=== PATIENT | male | born 1960 | race African-American/Black ===

== ENCOUNTER 2017-02-08 13:00 | Emergency (ER) | payer OTHER ==
[2017-02-08 13:05] VITALS: TEMP 98.5; BMI 33.2
--- NOTE | 2017-02-08 14:23 | PDOC ---
History of Present Illness - General Chief Complaint: Shortness of Breath Stated Complaint: SOB Time Seen by Provider: 02/08/17 14:22 History Source: Patient Exam Limitations: No Limitations - History of Present Illness Initial Comments: 56 yo AA M h/o HTN, HLD, ?COPD on PRN albuterol and predisone 10mg, schizophrenia presented to the ED with worsening sob and flu-like symptoms x 1- 2 days. Patient stated that he's been short of breath for 16 years and no physician able to figure out what's going on. He also said he has nasal polyps and septum deviation and ENT doctor told him no intervention necessary unless he can't breath. His flu-like symptoms include nasal congestion, runny nose, productive cough with white sputum. Denies fever, chills, chest pain, sick contact, recent travel, urinary or bowel symptoms. Past History - Past Medical History Allergies/Adverse Reactions: Allergies Allergy/AdvReac Type Severity Reaction Status Date / Time Penicillins Allergy Unknown Verified 02/08/17 13:06 SHRIMPS Allergy Uncoded 02/08/17 13:06 Home Medications: Ambulatory Orders Ramipril [Altace] 10 mg PO HS 07/01/12 Metformin HCl [Glucophage -] 1,000 mg PO BID 11/13/12 NPH, Human Insulin Isophane [Novolin N] 30 unit SQ BID 11/13/12 Clozapine 50 mg PO HS 12/12/14 Amlodipine Besylate [Norvasc -] 5 mg PO DAILY 01/10/16 Hydrochlorothiazide [Hctz -] 25 mg PO DAILY 01/10/16 Rosuvastatin Calcium [Crestor] 5 mg PO DAILY 01/10/16 Tamsulosin HCl [Flomax] 0.4 mg PO DAILY 01/10/16 Albuterol 0.083% Nebulizer Miladis [Ventolin 0.083% Nebulizer Soln -] 1 neb NEB Q6H #30 vial 10/22/16 Azithromycin [Zithromax -] 250 mg PO UTDICT #6 tab 10/22/16 Meclizine HCl 25 mg PO TID #30 tablet 10/22/16 Prednisone [Deltasone -] 40 mg PO DAILY #14 tablet 10/22/16 Prednisone [Deltasone -] 40 mg PO DAILY #4 tablet 02/08/17 COPD: Yes Diabetes: Yes HTN: Yes Hypercholesterolemia: Yes Psychiatric Problems: Yes (schizophrenia) - Immunization History Immunization Up to Date: No - Psycho/Social/Smoking Cessation Hx Anxiety: No Suicidal Ideation: No Smoking Status: No Smoking History: Former smoker Have you smoked in the past 12 months: No Number of Cigarettes Smoked Daily: 0 If you are a former smoker, when did you quit?: 1989 Cigars Per Day: 0 Information on smoking cessation initiated: Yes 'Breaking Loose' booklet given: 02/08/17 Hx Alcohol Use: No Drug/Substance Use Hx: No Substance Use Type: None Review of Systems - Review of Systems Able to Perform ROS?: Yes Is the patient limited Korean proficient: No Constitutional: No: Chills, Fever Respiratory: Yes: Cough, Shortness of Breath, Wheezing, Productive cough Cardiac (ROS): No: Chest Pain, Edema ABD/GI: No: Abdominal Distended, Nausea, Vomiting Musculoskeletal: Yes: Back Pain Neurological: Yes: Headache *Physical Exam - Vital Signs Last Vital Signs Temp Pulse Resp BP Pulse Ox 98.5 F 98 H 18 129/70 96 02/08/17 13:03 02/08/17 13:03 02/08/17 13:03 02/08/17 13:03 02/08/17 13:03 - Physical Exam General Appearance: Yes: Mild Distress HEENT: positive: Nasal Congestion. negative: Tonsillar Exudate, Tonsillar Erythema, Sinus Tenderness Neck: positive: Trachea midline, Supple Respiratory/Chest: positive: Rales, Wheezing Cardiovascular: positive: Regular Rhythm, Tachycardia. negative: Edema, Murmur Gastrointestinal/Abdominal: positive: Normal Bowel Sounds, Soft. negative: Tender, Distended, Guarding, Rebound, Tenderness Lymphatic: negative: Adenopathy, Tenderness Extremity: negative: Calf Tenderness Neurologic: positive: notcher II-XII NML intact, Fully Oriented, Alert, Normal Mood/ Affect Medical Decision Making - Medical Decision Making 02/08/17 15:46 Will give duoneb, predisone 60mg once and obtain CXR 02/08/17 16:48 CXR negative. Will discharge the patient home on prednisone 40mg daily x 4 more days. Patient is instructed to follow up with his PMD and ENT for further management on his chronic condition. *DC/Admit/Observation/Transfer Diagnosis at time of Disposition: Cold - Discharge Dispostion Disposition: HOME Condition at time of disposition: Improved Admit: No - Prescriptions Prescriptions: Prednisone [Deltasone -] 40 mg PO DAILY #4 tablet - Patient Instructions Additional Instructions: You were seen in the ED due to shortness of breath and cold symptoms. You have a cold which usually takes days to resolve and chronic condition of nasal polyps. Please continue to take predisone 40mg for 4 days and follow up with your primary doctor and ENT doctor. Come back in ED if you develop high fever, chills, chest pain or shortness of breath.
[2017-02-08] MEDS ORDERED: predniSONE 20 MG TABLET (UD) PO ONE (15:08)
[2017-02-08] MEDS ORDERED: predniSONE 20 MG TABLET (UD) ONE (15:24)
[2017-02-08] MEDS: ALBUTEROL SO4 2.5/IPRATROPIUM 0.5 INH SOL 3 ML VIAL.NEB. NEB SCH (15:32)
--- NOTE | 2017-02-08 15:46 | PDOC ---
[id number] I have performed the following: I have examined & evaluated the patient, The case was reviewed & discussed with the resident, I agree w/resident's findings & plan, Exceptions are as noted - HPI HPI: 56 yo M history COPD, seasonal allergies, chronic sinus problems, HTN, HL presents with upper respiratory congestion and cough, SOB for the past 2 days. He has been diagnosed with nasal polyps and a septal deviation, has not recently followed up with ENT. Denies fever, cp. He has had runny nose, cough with white sputum. - Physicial Exam PE: GENERAL: Awake, alert, and fully oriented, in no acute distress HEAD: No signs of trauma EYES: PERRLA, EOMI, sclera anicteric, conjunctiva clear ENT: R nare with thick nonpurulent discharge, L nare clear. Auricles normal inspection, hearing grossly normal, oropharynx clear without exudates. Moist mucosa NECK: Normal ROM, supple, no lymphadenopathy, JVD, or masses LUNGS: Slightly decreased air entry B/L with scattered exp wheezes. HEART: Regular rate and rhythm, normal S1 and S2, no murmurs, rubs or gallops ABDOMEN: Soft, nontender, normoactive bowel sounds. No guarding, no rebound. No masses EXTREMITIES: Normal range of motion, no edema. No clubbing or cyanosis. No cords, erythema, or tenderness NEUROLOGICAL: Cranial nerves II through XII grossly intact. Normal speech, normal gait SKIN: Warm, Dry, normal turgor, no rashes or lesions noted. - Medical Decision Making Patient with COPD exacerbation, mild symptoms. Likely due to seasonal allergies vs viral upper respiratory infection. Recommended nasal steroid spray, nebs, and PO steroids. Will f/u with ENT if the nasal symptoms persist.
[2017-02-08 17:31] VITALS: BP 118/68; PULSE 72
--- NOTE | 2017-02-12 12:38 | EKG ---
Test Reason : Blood Pressure : / mmHG Vent. Rate : 096 BPM Atrial Rate : 096 BPM P-R Int : 174 ms QRS Dur : 096 ms QT Int : 350 ms P-R-T Axes : 079 093 072 degrees QTc Int : 442 ms NORMAL SINUS RHYTHM RIGHTWARD AXIS WHEN COMPARED WITH ECG OF 22-OCT-2016 01:47, QRS AXIS SHIFTED LEFT NONSPECIFIC T WAVE ABNORMALITY NOW EVIDENT IN LATERAL LEADS Confirmed by ALBANIA CORONA, ALEX ([id number]) on 02/12/2017 12:37:58 PM Referred By: Confirmed By:ALEX LOVELACE MD
== END 2017-02-08 17:32 | disposition home or self-care (01) ==
LOC: JER 13:00
PROC: 3E0F7GC Introduction of Other Therapeutic Substance into Respiratory Tract, Via Natural or Artificial Opening (ICD-10-PCS; principal; 2017-02-08)
DX: J00 Acute nasopharyngitis [common cold] (principal); I10 Essential (primary) hypertension; E78.00 Pure hypercholesterolemia, unspecified; J44.9 Chronic obstructive pulmonary disease, unspecified; F20.9 Schizophrenia, unspecified
CPT/HCPCS: 71010-TC; 93005; 93010; 99283-25

== ENCOUNTER 2019-02-28 02:13 | Emergency (ER) | payer OTHER ==
[2019-02-28 03:10] VITALS: TEMP 97.8; BMI 30.8
[2019-02-28] MEDS ORDERED: ALBUTEROL SO4 2.5/IPRATROPIUM 0.5 INH SOL 3 ML VIAL.NEB. NEB ONE ×3 (03:47→04:13)
--- NOTE | 2019-02-28 04:01 | PDOC ---
Attending Attestation - Resident Resident Name: Elias Vegas - ED Attending Attestation I have performed the following: I have examined & evaluated the patient, The case was reviewed & discussed with the resident, I agree w/resident's findings & plan - HPI HPI: 02/28/19 03:59 58-year-old male complaining of wheezing cough and shortness of breath. - Physicial Exam PE: 02/28/19 04:00 GENERAL: Awake, in no acute distress HEAD: No signs of trauma EYES: ENT:clear without exudates. Moist mucosa NECK: Normal ROM, LUNGS:. Decreased air entry with bilateral end expiratory wheezing HEART: Regular rate and rhythm, ABDOMEN: Soft, nondistended CHEST WALL: BACK: No midline tenderness. EXTREMITIES:. No erythema, or tenderness NEUROLOGICAL: Alert, SKIN: Warm, Dry - Medical Decision Making 02/28/19 04:00 58-year-old male with wheezing and shortness of breath Chest x-ray, EKG and labs DuoNeb's 3 currently in progress We'll reevaluate for steroid need probable admission
[2019-02-28] MEDS ORDERED: methylPREDNISolone NA SUCC 125 MG/2 ML VIAL IVPUSH ONE (04:24)
--- NOTE | 2019-02-28 04:24 | PDOC ---
History of Present Illness - General Chief Complaint: Shortness of Breath Stated Complaint: DIFFICULTY BREATHING Time Seen by Provider: 02/28/19 03:52 - History of Present Illness Initial Comments: 02/28/19 04:57 The patient is a 58 year old male with a history of HTN, HLD, DM, COPD who presents for evaluation of shortness of breath. The patient reports a 1 month history of worsening shortness of breath. He notes worsening shortness of breath with a productive cough over the past 1-3 days prompting his presentation to the ED for further evaluation. The patient reports continued symptoms despite his home albuterol inhaler use. He otherwise denies fevers, chills, chest pain, nausea, vomiting, abdominal pain, or changes with urination or bowel movements. Past History - Past Medical History Allergies/Adverse Reactions: Allergies Allergy/AdvReac Type Severity Reaction Status Date / Time Penicillins Allergy Unknown Verified 02/08/17 13:06 SHRIMPS Allergy Uncoded 02/08/17 13:06 Home Medications: Ambulatory Orders Ramipril [Altace] 10 mg PO HS 07/01/12 NPH, Human Insulin Isophane [Novolin N] 30 unit SQ BID 11/13/12 metFORMIN HCL [Glucophage -] 1,000 mg PO BID 11/13/12 Clozapine 50 mg PO HS 12/12/14 Amlodipine Besylate [Norvasc -] 5 mg PO DAILY 01/10/16 Hydrochlorothiazide [Hctz -] 25 mg PO DAILY 01/10/16 Rosuvastatin Calcium [Crestor] 5 mg PO DAILY 01/10/16 Tamsulosin HCl [Flomax] 0.4 mg PO DAILY 01/10/16 Albuterol 0.083% Nebulizer Miladis [Ventolin 0.083% Nebulizer Soln -] 1 neb NEB Q6H #30 vial 10/22/16 Azithromycin [Zithromax -] 250 mg PO UTDICT #6 tab 10/22/16 Meclizine HCl 25 mg PO TID #30 tablet 10/22/16 predniSONE [Deltasone -] 40 mg PO DAILY #14 tablet 10/22/16 predniSONE [Deltasone -] 40 mg PO DAILY #4 tablet 02/08/17 Albuterol Sulfate Inhaler - [Ventolin HFA Inhaler -] 1 - 2 inh PO QID #1 inhaler 02/28/19 Prednisone [Prednisone 50 MG TABLETS] 50 mg PO DAILY #7 tablet 02/28/19 COPD: Yes Diabetes: Yes HTN: Yes Hypercholesterolemia: Yes Psychiatric Problems: Yes (schizophrenia) - Immunization History Immunization Up to Date: No - Suicide/Smoking/Psychosocial Hx Smoking Status: No Smoking History: Never smoked Have you smoked in the past 12 months: No Number of Cigarettes Smoked Daily: 0 If you are a former smoker, when did you quit?: 1990 Cigars Per Day: 0 Information on smoking cessation initiated: No 'Breaking Loose' booklet given: 02/08/17 Hx Alcohol Use: No Drug/Substance Use Hx: No Substance Use Type: None Review of Systems - Review of Systems Comments:: 02/28/19 04:59 Constitutional: No fevers, chills, fatigue, malaise HEENT: No Rhinorrhea, nasal congestion, visual changes Cardiovascular: No chest pain, syncope, palpitations, lightheadedness Respiratory: Cough, SOB, No Hemoptysis, Gastrointestinal: No Abdominal pain, Nausea, Vomiting, Constipation, Diarrhea, Melena Genitourinary: No Dysuria, Frequency, Urgency, Hesitancy, Hematuria, Flank pain Musculoskeletal: No Myalgia, arthralgia Skin: No rashes, itching, bruising, pallor Neurologic: No Headache, Dizziness, Numbness, Weakness, or Tingling Psychiatric: No Hallucinations. No SI or HI *Physical Exam - Vital Signs Last Vital Signs Temp Pulse Resp BP Pulse Ox 97.8 F 107 H 19 122/66 95 02/28/19 02:13 02/28/19 02:13 02/28/19 02:13 02/28/19 02:13 02/28/19 02:13 - Physical Exam Comments: 02/28/19 04:59 General Appearance: Nourished. No Apparent Distress HEENT: No Pharyngeal Erythema, Tonsillar Exudate, Tonsillar Erythema Neck: No Cervical Lymphadenopathy Respiratory/Chest: Course breath sounds bilaterally with bilateral wheezing on auscultation. No Crackles, Rales, Rhonchi, Cardiovascular: Regular Rhythm, Regular Rate. No Murmur, Gallops, Rubs Gastrointestinal/Abdominal: Normal Bowel Sounds, Soft. No Guarding, Rebound, Tenderness Musculoskeletal: No CVA Tenderness Extremity: Normal Capillary Refill Integumentary: Normal Color, Dry, Warm Neurologic: Fully Oriented, Alert, Normal Mood/Affect, Normal Response, ED Treatment Course - LABORATORY CBC & Chemistry Diagram: 02/28/19 04:21 02/28/19 04:21 - Medications Given in the ED: ED Medications Discontinued Medications Generic Name Dose Route Start Last Admin Trade Name Nadeem PRN Reason Stop Dose Admin Albuterol/Ipratropium 3 amp 02/28/19 03:47 02/28/19 03:51 Duoneb - NEB 02/28/19 03:48 3 amp ONCE ONE Administration Medical Decision Making - Medical Decision Making 02/28/19 05:00 The patient is a 58 year old male with a history of HTN, HLD, DM, COPD who presents for evaluation of shortness of breath. Differential includes but is not limited to: COPD exacerbation, Pneumonia, CHF, Infectious, Metabolic Derangement. Given the patient's history and physical exam, we will obtain a cbc, cmp, troponin, bnp, ekg, chest plain film to evaluate further. We will treat with duonebs and solumedrol and continue to monitor and reassess while here in the ED. The patient will likely require admission for further management. 02/28/19 06:34 CBC, cmp, troponin, bnp are unremarkable. Chest plain film is unremarkable. Given the patient's persistent symptoms, we believe he require admission for further monitoring. The patient voiced that he wished to leave AMA. The patient reason(s) for leaving include, but are not limited to, the following: having to take care of his mother. I believe this patient is of sound mind and competent to refuse medical care. The patient is responding and asking questions appropriately. The patient is oriented to person, place and time. The patient is not psychotic, delusional, suicidal, homicidal or hallucinating. The patient demonstrates a normal mental capacity to make decisions regarding their healthcare. The patient is clinically sober and does not appear to be under the influence of any illicit drugs at this time. The patient has been advised of the risks, in layman terms, of leaving AMA which include, but are not limited to cardiac arrest, severe infection, dehydration, myocardial infarction, arrhythmia, stroke, respiratory failure, , coma, permanent disability, loss of current lifestyle, delay in diagnosis. Alternatives have been offered - the patient remains steadfast in their wish to leave. The patient has been advised that should they change their mind they are welcome to return to this hospital, or any other, at any time. The patient understands that in no way does an AMA discharge mean that I do not want them to have the best medical care available. To this end, I have provided appropriate prescriptions, referrals, and discharge instructions. Pt will be treated with Prednisone and albuterol and close follow up with primary care doctor with reevaluation. Return precautions advised, call [phone] immediately if severe life threatening symptoms or concerns.. Pt has verbalized understanding of information provided, questions answered. The patient did sign AMA paperwork. *DC/Admit/Observation/Transfer Diagnosis at time of Disposition: COPD (chronic obstructive pulmonary disease) Qualifiers: COPD type: COPD with acute exacerbation Qualified Code(s): J44.1 - Chronic obstructive pulmonary disease with (acute) exacerbation - Discharge Dispostion Disposition: AGAINST MEDICAL ADVICE Condition at time of disposition: Stable - Prescriptions Prescriptions: Albuterol Sulfate Inhaler - [Ventolin HFA Inhaler -] 1 - 2 inh PO QID #1 inhaler Prednisone [Prednisone 50 MG TABLETS] 50 mg PO DAILY #7 tablet - Referrals Referrals: Neyda Michel [Primary Care Provider] - - Patient Instructions Printed Discharge Instructions: DI for Chronic Obstructive Pulmonary Disease Additional Instructions: 1) Please follow-up with your primary care doctor in the next 2-3 days. Please call tomorrow to schedule a follow up appointment. If you cannot follow up with your doctor within 1 week please return to the Emergency Department for any urgent issues. 2) Your laboratory / imaging results were normal here in the ER. 3) If you have any worsening of symptoms or any other concerns please return to the ER immediately. Return if worsening symptoms including fevers, headache, vomiting, visual or hearing disturbances, abdominal pain, chest pain, shortness of breath, syncope, dehydration, inability to take things by mouth/vomiting, altered mental status, or worsening concerning symptoms. 4) Please continue taking your home medications as directed. Your medications on discharge include Predisone and Albuterol . Side effects may include upset stomach, abdominal pain, vomiting, or diarrhea. Do not drink alcohol with your medications. - Post Discharge Activity
[2019-02-28 04:26] LABS: HEMATOCRIT 40.8 % (35.4-49); HEMOGLOBIN 13.3 GM/dL (11.7-16.9); MCH 26.2 pg (25.7-33.7); MCHC 32.7 g/dl (32.0-35.9); MEAN CELL VOLUME 80.3 fl (80-96); MEAN PLT VOLUME 7.8 fl (7.5-11.1); PLATELET COUNT 141 K/MM3 (134-434); RBC 5.08 M/mm3 (4.00-5.60); RDW 15.7 % (11.9-15.9); WHITE BLOOD COUNT 8.2 K/mm3 (4.0-10.0)
[2019-02-28 04:29] VITALS: BP 135/71; PULSE 86
[2019-02-28] MEDS ORDERED: methylPREDNISolone NA SUCC 125 MG/2 ML VIAL ONE (04:29)
[2019-02-28 05:09] LABS: ALBUMIN 4.1 g/dl (3.4-5.0); ALK PHOS 61 U/L (45-117); ANION GAP 5 MMOL/L (8-16); BILIRUBIN,TOTAL 0.7 mg/dL (0.2-1); BLOOD UREA NITROGEN 12 mg/dL (7-18); CALCIUM 8.8 mg/dL (8.5-10.1); CHLORIDE 102 mmol/L (98-107); CO2 29 mmol/L (21-32); CREATININE 0.9 mg/dL (0.55-1.3); GLUCOSE,RANDOM 103 mg/dL (74-106); MAGNESIUM 1.9 mg/dL (1.8-2.4); N-TERMINAL BNP 8.9 pg/ml (5-125); PHOSPHOROUS 3.6 mg/dL (2.5-4.9); SGOT/AST 21 U/L (15-37); SGPT/ALT 28 U/L (13-61); SODIUM 137 mmol/L (136-145); TOT PROT 6.7 g/dl (6.4-8.2)
--- NOTE | 2019-02-28 17:16 | EKG ---
Test Reason : Blood Pressure : / mmHG Vent. Rate : 080 BPM Atrial Rate : 080 BPM P-R Int : 166 ms QRS Dur : 090 ms QT Int : 364 ms P-R-T Axes : 080 094 059 degrees QTc Int : 419 ms NORMAL SINUS RHYTHM RIGHTWARD AXIS PULMONARY DISEASE PATTERN ABNORMAL ECG WHEN COMPARED WITH ECG OF 28-FEB-2019 04:13, NO SIGNIFICANT CHANGE WAS FOUND Confirmed by ANDREA CORONA, KALEIGH ([id number]) on 02/28/2019 5:15:33 PM Referred By: Priscilla GARCIA Confirmed By:KALEIGH MENDEZ MD
== END 2019-02-28 06:10 | disposition left against medical advice (07) ==
LOC: JER 02:13
PROC: 3E0F7GC Introduction of Other Therapeutic Substance into Respiratory Tract, Via Natural or Artificial Opening (ICD-10-PCS; principal; 2019-02-28)
PROC: 3E0333Z Introduction of Anti-inflammatory into Peripheral Vein, Percutaneous Approach (ICD-10-PCS; 2019-02-28)
DX: J44.1 Chronic obstructive pulmonary disease with (acute) exacerbation (principal); I10 Essential (primary) hypertension; E11.9 Type 2 diabetes mellitus without complications; Z79.4 Long term (current) use of insulin; E78.5 Hyperlipidemia, unspecified
CPT/HCPCS: 36415; 71045-TC-FY; 80053; 82550; 82553; 83735; 83880; 84100; 84484; 85027; 93005; 93010; 99283-25

== ENCOUNTER 2019-07-26 14:33 | Emergency (ER) | payer OTHER ==
[2019-07-26] MEDS ORDERED: predniSONE 20 MG TABLET (UD) PO ONE (14:40)
--- NOTE | 2019-07-26 14:44 | PDOC ---
Rapid Medical Evaluation Time Seen by Provider: 07/26/19 14:38 Medical Evaluation: Allergies Allergy/AdvReac Type Severity Reaction Status Date / Time Penicillins Allergy Unknown Verified 07/26/19 14:36 SHRIMPS Allergy Uncoded 07/26/19 14:36 07/26/19 14:38 I have performed a brief in-person evaluation of this patient. The patient presents with a chief complaint of: SOB and wheezing intermittently for 2 mo, worse for the past couple of days. Denies CP. Pt w/ h/o HTN, DM, COPD , HLD. He has used albuterol at home without relief. Pertinent physical exam findings: (+)resp distress, retractions, exp. wheezing. HR 137 I have ordered the following: Duonebs, prednisone, CXR, CBC, CMP, EKG, cardiac enzymes. The patient will proceed to the ED for further evaluation. 07/26/19 14:42 Discharge Disposition - Diagnosis Shortness of breath - Referrals - Patient Instructions - Post Discharge Activity
[2019-07-26 14:45] VITALS: BMI 31.7
[2019-07-26] MEDS ORDERED: predniSONE 20 MG TABLET (UD) ONE (14:45)
[2019-07-26] MEDS ORDERED: ALBUTEROL SO4 2.5/IPRATROPIUM 0.5 INH SOL 3 ML VIAL.NEB. NEB ONE ×2 (14:45→15:14)
--- NOTE | 2019-07-26 14:46 | PDOC ---
History of Present Illness - General Chief Complaint: Respiratory Stated Complaint: DIFFICULTY BREATHING Time Seen by Provider: 07/26/19 14:38 History Source: Patient Exam Limitations: No Limitations - History of Present Illness Initial Comments: Berhane Augustin is a 58 yo M w a hx of COPD, childhood asthma, HTN, HLD, and NIDDM who presents to the [facility] er for shortness of breath. He states he has been having a cough productive of whitish sputum for the past 2 weeks which has been slowly but progressively worsening. He reports that he use to only need his albuterol inhaler once a day, then he started requiring it every 12 hours, then every 8 hours, then every 6, then every 4 hours. This week the patient started needing to use his albuterol every hour which prompted this visit to the ER. He has been pushing off coming to the hospital because he needs to be at home to take care of his elderly mother. Social History: Former smoker (quit 20 years ago). He denies ETOH and recreational drug use. Primary Care Physician: Dr. Neyda Michel [phone] Allergies: Penicillins and shrimp PSH: None reported Past History - Past Medical History Allergies/Adverse Reactions: Allergies Allergy/AdvReac Type Severity Reaction Status Date / Time Penicillins Allergy Unknown Verified 07/26/19 14:36 SHRIMPS Allergy Uncoded 07/26/19 14:36 Home Medications: Ambulatory Orders Ramipril [Altace] 10 mg PO HS 07/01/12 NPH, Human Insulin Isophane [Novolin N] 30 unit SQ BID 11/13/12 metFORMIN HCL [Glucophage -] 1,000 mg PO BID 11/13/12 Clozapine 50 mg PO HS 12/12/14 Amlodipine Besylate [Norvasc -] 5 mg PO DAILY 01/10/16 Hydrochlorothiazide [Hctz -] 12.5 mg PO DAILY 01/10/16 Rosuvastatin Calcium [Crestor] 5 mg PO DAILY 01/10/16 Tamsulosin HCl [Flomax] 0.4 mg PO DAILY 01/10/16 Albuterol 0.083% Nebulizer Miladis [Ventolin 0.083% Nebulizer Soln -] 1 neb NEB Q6H #30 vial 10/22/16 Albuterol Sulfate Inhaler - [Ventolin HFA Inhaler -] 1 - 2 inh PO QID #1 inhaler 02/28/19 Albuterol 0.083% Nebulizer Miladis [Ventolin 0.083% Nebulizer Soln -] 1 neb NEB Q6H PRN #30 vial 07/26/19 Aspirin [Aspirin EC] 81 mg PO WEEKLY 07/26/19 Azithromycin [Zithromax 250mg Tablets -] 250 mg PO UTDICT #6 tab 07/26/19 Meclizine HCl 25 mg PO TID PRN 07/26/19 predniSONE [Deltasone -] 60 mg PO DAILY #12 tablet 07/26/19 COPD: Yes Diabetes: Yes HTN: Yes Hypercholesterolemia: Yes Psychiatric Problems: Yes (schizophrenia) - Immunization History Immunization Up to Date: No - Psycho Social/Smoking Cessation Hx Smoking Status: No Smoking History: Unknown if ever smoked Have you smoked in the past 12 months: No Number of Cigarettes Smoked Daily: 0 If you are a former smoker, when did you quit?: 1990 Cigars Per Day: 0 'Breaking Loose' booklet given: 02/08/17 Hx Alcohol Use: No Drug/Substance Use Hx: No Substance Use Type: None Review of Systems - Review of Systems Able to Perform ROS?: Yes Comments:: CONSTITUTIONAL: Absent: fever, no chills, no fatigue EYES: Absent: visual changes ENT: Absent: ear pain, no sore throat CARDIOVASCULAR: Absent: chest pain, no palpitations RESPIRATORY: Present: cough, SOB GI: Absent: abdominal pain, no nausea, no vomiting, no constipation, no diarrhea GENITOURINARY: Absent: dysuria, no frequency, no hematuria MUSKULOSKELETAL: Absent: back pain, no arthralgia, no myalgia SKIN: Absent: rash NEURO: Absent: headache *Physical Exam - Vital Signs Last Vital Signs Temp Pulse Resp BP Pulse Ox 98.9 F 137 H 26 H 00/00 L 97 07/26/19 14:43 07/26/19 14:43 07/26/19 14:43 07/26/19 14:43 07/26/19 14:43 - Physical Exam Comments: GENERAL: Well-appearing, well-nourished. Mild distress. HEENT: Normocephalic, atraumatic. PERRL, EOM intact. CARDIOVASCULAR: Tachycardic rate. Normal S1, S2. Regular rhythm. PULMONARY: Clear evidence of respiratory distress. There is diffuse expiratory wheezing. No focal crackles. ABDOMEN: Soft, non-distended, non-tender. EXTREMITIES: Normal ROM in all four extremities. No gross deformities. SKIN: Warm, dry. No rash NEUROLOGICAL: No focal neurological deficits. ED Treatment Course - LABORATORY CBC & Chemistry Diagram: 07/26/19 14:53 07/26/19 14:53 Medical Decision Making - Medical Decision Making Berhane Augustin is a 58 yo M w a hx of COPD, childhood asthma, HTN, HLD, and NIDDM who presents to the [facility] er for shortness of breath. He states he has been having a cough productive of whitish sputum for the past 2 weeks which has been slowly but progressively worsening. He reports that he use to only need his albuterol inhaler once a day, then he started requiring it every 12 hours, then every 8 hours, then every 6, then every 4 hours. This week the patient started needing to use his albuterol every hour which prompted this visit to the ER. He has been pushing off coming to the hospital because he needs to be at home to take care of his elderly mother. VS: Vital Signs Temp Pulse Resp BP Pulse Ox 97.6 F 86 16 129/70 97 07/26/19 16:50 07/26/19 17:40 07/26/19 17:40 07/26/19 17:40 07/26/19 16:50 DDx IBNLT: COPD vs Asthma, ACS/NC, PNA, pneumothorax, electrolyte/metabolic disturbance Plan: Labs, CXR, EKG, duonebs, steroids, re-assess. Labs: Unremarkable EKG: No suggestion of ACS. No St elevations or depressions. CXR: Unremarkable Re-assessment: Patient feels better after symptomatic treatments and has been ambulating around the ER asking to be discharged. Disposition: Home with PCP and Pulm FU Discharge - Discharge Information Problems reviewed: Yes Clinical Impression/Diagnosis: Shortness of breath COPD (chronic obstructive pulmonary disease) Qualifiers: COPD type: unspecified COPD Qualified Code(s): J44.9 - Chronic obstructive pulmonary disease, unspecified Condition: Stable Disposition: HOME - Admission No - Additional Discharge Information Prescriptions: Albuterol 0.083% Nebulizer Miladis [Ventolin 0.083% Nebulizer Soln -] 1 neb NEB Q6H PRN #30 vial PRN Reason: Wheezing Azithromycin [Zithromax 250mg Tablets -] 250 mg PO UTDICT #6 tab predniSONE [Deltasone -] 60 mg PO DAILY #12 tablet - Follow up/Referral Referrals: Emmanuel Campbell MD [Staff Physician] - Bucky Diaz MD, MD [Staff Physician] - - Patient Discharge Instructions Patient Printed Discharge Instructions: Chronic Obstructive Pulmonary Disease ( Alternative Therapy), DI for Chronic Obstructive Pulmonary Disease, DI for Diabetes Type 1 -- Adult Additional Instructions: Mr. Augustin Thank you for coming into the emergency department today Please be sure to follow-up with the internal medicine clinic. I have prescribed you DuoNeb's which can be taken every 6 hours. I will give you a short course of p.o. steroids. Please be aware that the steroids will increase her blood glucose. As such, you need to monitor your blood glucose before every meal. If you find that your blood glucose is elevated, increase your insulin dose and return to the emergency department for assessment Print Language: SYRIAC - Post Discharge Activity
[2019-07-26] MEDS: ALBUTEROL SO4 2.5/IPRATROPIUM 0.5 INH SOL 3 ML VIAL.NEB. NEB SCH ×3 (14:53→15:26)
[2019-07-26 15:08] LABS: VENOUS PC02 43.8 mmHg (38-52); VENOUS PH 7.41 (7.31-7.41); VENOUS PO2 68.5 mmHg (28-48)
[2019-07-26 15:09] LABS: EOS % 14.3 % (0-4.5); HEMOGLOBIN 13.8 GM/dL (11.7-16.9); MCH 26.9 pg (25.7-33.7); MCHC 33.7 g/dl (32.0-35.9); MEAN CELL VOLUME 79.7 fl (80-96); MEAN PLT VOLUME 7.8 fl (7.5-11.1); MONO % 6.6 % (3.8-10.2); NEUT % 53.1 % (42.8-82.8); PLATELET COUNT 185 K/MM3 (134-434); RBC 5.14 M/mm3 (4.00-5.60); RDW 15.1 % (11.9-15.9); WHITE BLOOD COUNT 7.6 K/mm3 (4.0-10.0)
[2019-07-26 15:47] LABS: ALBUMIN 4.6 g/dl (3.4-5.0); ALK PHOS 76 U/L (45-117); ANION GAP 10 MMOL/L (8-16); BILIRUBIN,TOTAL 0.6 mg/dL (0.2-1); BLOOD UREA NITROGEN 8.6 mg/dL (7-18); CALCIUM 9.4 mg/dL (8.5-10.1); CHLORIDE 103 mmol/L (98-107); CO2 28 mmol/L (21-32); GLUCOSE,RANDOM 122 mg/dL (74-106); POTASSIUM 4.3 mmol/L (3.5-5.1); SGOT/AST 26 U/L (15-37); SGPT/ALT 42 U/L (13-61); SODIUM 141 mmol/L (136-145); TOT PROT 7.2 g/dl (6.4-8.2)
--- NOTE | 2019-07-26 16:03 | PDOC ---
Attending Attestation - Resident Resident Name: Sanchez Fernando - ED Attending Attestation I have performed the following: I have examined & evaluated the patient, The case was reviewed & discussed with the resident, I agree w/resident's findings & plan, Exceptions are as noted - HPI HPI: 07/26/19 16:21 Mr. Augustin is a 58 yo M with a h/o COPD, childhood asthma, HTN, HLD, and NIDDM who presents to the [facility] er for shortness of breath. He was seen in February for the same, started on steroids, which helped him feel better He then followed up with his pmd one month later who did the same Pt state he feels best when he is on sterods He followed up with Pulmonary who recommended he start inhales steroids pt is not inclined to do this as this has only made him worse His current symptoms have been present for 2 weeks which has been slowly but progressively worsening. He is now using his nebulized hourly which is what prompted his visit to the ER No fevers or chills. No chest pain No leg swelling No recent travel Social History: Former smoker (quit 20 years ago). He denies ETOH and recreational drug use. Primary Care Physician: Dr. Neyda Michel [phone] Allergies: Penicillins and shrimp PSH: None reported - Physicial Exam PE: 07/26/19 15:21 GENERAL: The patient is in no acute distress. ENT: Ears normal, nares patent, oropharynx clear without exudates. Moist mucous membranes. NECK: Normal range of motion, supple, no nuchal rigidity (+) LAD LUNGS: inspiratory and expiratory wheezing through out HEART:Regular rate and rhythm, normal S1 and S2 without murmur, rub or gallop. ABDOMEN: Soft, nontender, normoactive bowel sounds. EXTREMITIES: Normal range of motion, no edema. NEUROLOGICAL: Cranial nerves II through XII grossly intact. Normal speech. No focal neurological deficits. SKIN: Warm, Dry, normal turgor, no rashes or lesions noted. 07/26/19 16:57 - Medical Decision Making 07/26/19 16:57 Laboratory Tests 07/26/19 07/26/19 14:53 14:53 WBC 7.6 Hgb 13.8 Hct 41.0 Plt Count 185 D Creatine Kinase 942 H Creatine Kinase Index 0.6 CK-MB (CK-2) 6.3 H Troponin I < 0.02 CXR: no signs of infiltrate or failure 07/26/19 16:57 EKG: ST rate of 107bpm, Right axis deviation, pulmonary pattern, no st elevation or depression Will discharge to home Will ask pt to follow up with resident clinic 07/27/19 14:16 Discharge - Discharge Information Problems reviewed: Yes Clinical Impression/Diagnosis: Shortness of breath COPD (chronic obstructive pulmonary disease) Qualifiers: COPD type: unspecified COPD Qualified Code(s): J44.9 - Chronic obstructive pulmonary disease, unspecified Condition: Stable Disposition: HOME - Admission No - Additional Discharge Information Prescriptions: Albuterol 0.083% Nebulizer Miladis [Ventolin 0.083% Nebulizer Soln -] 1 neb NEB Q6H PRN #30 vial PRN Reason: Wheezing Azithromycin [Zithromax 250mg Tablets -] 250 mg PO UTDICT #6 tab predniSONE [Deltasone -] 60 mg PO DAILY #12 tablet Prescription Drug Monitoring Program (I-STOP) results: I-STOP not reviewed - Follow up/Referral Referrals: Emmanuel Campbell MD [Staff Physician] - Bucky Diaz MD, MD [Staff Physician] - - Patient Discharge Instructions Patient Printed Discharge Instructions: Chronic Obstructive Pulmonary Disease ( Alternative Therapy), DI for Chronic Obstructive Pulmonary Disease, DI for Diabetes Type 1 -- Adult Additional Instructions: Mr. Augustin Thank you for coming into the emergency department today Please be sure to follow-up with the internal medicine clinic. I have prescribed you DuoNeb's which can be taken every 6 hours. I will give you a short course of p.o. steroids. Please be aware that the steroids will increase her blood glucose. As such, you need to monitor your blood glucose before every meal. If you find that your blood glucose is elevated, increase your insulin dose and return to the emergency department for assessment Print Language: MOZAMBICAN - Post Discharge Activity
[2019-07-26 16:52] VITALS: TEMP 97.6
[2019-07-26 17:45] VITALS: BP 129/70; PULSE 86
--- NOTE | 2019-07-27 09:57 | EKG ---
Test Reason : Blood Pressure : / mmHG Vent. Rate : 107 BPM Atrial Rate : 107 BPM P-R Int : 154 ms QRS Dur : 082 ms QT Int : 334 ms P-R-T Axes : 066 122 066 degrees QTc Int : 445 ms POOR DATA QUALITY, INTERPRETATION MAY BE ADVERSELY AFFECTED SINUS TACHYCARDIA RIGHT AXIS DEVIATION PULMONARY DISEASE PATTERN ABNORMAL ECG WHEN COMPARED WITH ECG OF 28-FEB-2019 04:14, NO SIGNIFICANT CHANGE WAS FOUND Confirmed by ALEX LOVELACE MD ([id number]) on 07/27/2019 9:57:18 AM Referred By: Confirmed By:ALEX LOVELACE MD
== END 2019-07-26 17:40 | disposition home or self-care (01) ==
LOC: JER 14:33
PROC: 3E0F7GC Introduction of Other Therapeutic Substance into Respiratory Tract, Via Natural or Artificial Opening (ICD-10-PCS; principal; 2019-07-26)
DX: J44.9 Chronic obstructive pulmonary disease, unspecified (principal); I10 Essential (primary) hypertension; E78.5 Hyperlipidemia, unspecified; E11.9 Type 2 diabetes mellitus without complications; Z79.84 Long term (current) use of oral hypoglycemic drugs; Z91.013 Allergy to seafood; Z88.0 Allergy status to penicillin
CPT/HCPCS: 36415; 71046-TC-FY; 80053; 82550; 82553; 82803; 84484; 85025; 93005; 93010; 94640; 99284-25

== ENCOUNTER 2019-09-05 14:15 | Emergency (ER) | payer OTHER ==
--- NOTE | 2019-09-05 14:18 | PDOC ---
Rapid Medical Evaluation Time Seen by Provider: 09/05/19 14:18 Medical Evaluation: Allergies Allergy/AdvReac Type Severity Reaction Status Date / Time Penicillins Allergy Unknown Verified 07/26/19 14:36 SHRIMPS Allergy Uncoded 07/26/19 14:36 09/05/19 14:18 I have performed a brief in-person evaluation of this patient. The patient presents with a chief complaint of: copd Pertinent physical exam findings:stable and in NAD, non-focal I have ordered the following:labs, chest xray The patient will proceed to the ED for further evaluation. 09/05/19 14:26 Discharge Disposition - Discharge Dispostion Condition at time of disposition: Stable - Referrals - Patient Instructions - Post Discharge Activity
[2019-09-05 14:23] VITALS: BP 143/69; PULSE 94; TEMP 98.4; BMI 40.3
[2019-09-05] MEDS ORDERED: ALBUTEROL SO4 2.5/IPRATROPIUM 0.5 INH SOL 3 ML VIAL.NEB. NEB ONE ×2 (15:10→15:33)
[2019-09-05] MEDS ORDERED: PSEUDOEPHEDRINE HCL 60 MG TABLET PO ONE (15:11)
[2019-09-05] MEDS ORDERED: methylPREDNISolone NA SUCC 125 MG/2 ML VIAL IVPB ONE (15:15)
--- NOTE | 2019-09-05 15:15 | PDOC ---
History of Present Illness - General Chief Complaint: Shortness of Breath Stated Complaint: DIFFICULTY BREATHING Time Seen by Provider: 09/05/19 14:18 - History of Present Illness Initial Comments: 09/05/19 15:18 CHIEF COMPLAINT: Shortness of breath HISTORY OF PRESENT ILLNESS: This is a 58-year-old male with a history of ? asthma vs. COPD (patient states he has "never been diagnosed") who presents for evaluation of shortness of breath. Patient reports that he has had nasal congestion and wheezing for several months. He was seen by ENT and diagnosed with nasal polyps, which are being managed conservatively. He has seen pulmonology and was started on "all kinds of inhalers", which he does not take because he feels like they make his symptoms worse. He takes albuterol nebulizers at home as needed, and feels that these are helpful for him. Today he presents because he has been using them every 2 hours for shortness of breath. He notes that he was out today and became suddenly more short of breath , prompting him to present to the ER. He reports chronic cough with white/jiménez sputum. He denies fever/chills. He denies chest pain. He denies calf pain or leg swelling. Patient reports that he had PFTs recently, but used albuterol prior to the test. Social history: Retired from [employer] (no combat). 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 No known exposure to toxic fumes. Smoking: One pack per day, quit 25 years ago Illicits: None Alcohol: None PCP: Dr. Michel, wishes to change as takes 1 hr for pt to get to him, tried [facility] but does not wish to continue there Pulm: Saw Dr. Rowell in past, wants new referral Allergies listed are penicillin and shrimp. Patient reports penicillin "just makes me sick" and "I just don't like shrimp." Vital signs on arrival are notable for SPO2 94% on room air. Peak expiratory flow is 250. Patient does not know his personal best. REVIEW OF SYSTEMS: GENERAL/CONSTITUTIONAL: No fever or chills. No weakness. No weight change. HEAD, EYES, EARS, NOSE AND THROAT: Chronic nasal congestion. No change in vision. No ear pain or discharge. No sore throat. CARDIOVASCULAR: No chest pain or palpitations. RESPIRATORY: See HPI. GASTROINTESTINAL: No nausea, vomiting, diarrhea or constipation. GENITOURINARY: No dysuria, frequency, or change in urination. MUSCULOSKELETAL: No joint or muscle swelling or pain. No neck or back pain. SKIN: No rash or easy bruising. NEUROLOGIC: No headache, vertigo, loss of consciousness, or loss of sensation. PSYCHIATRIC: No depression or anxiety. ENDOCRINE: No increased thirst. No abnormal weight change. HEMATOLOGIC/LYMPHATIC: No anemia, easy bleeding, or history of blood clots. ALLERGIC/IMMUNOLOGIC: No hives or skin allergy. No latex allergy. PHYSICAL EXAM: GENERAL: The patient is awake, alert, and fully oriented, in no acute distress. ENT: Pupils equal, round and reactive to light, extraocular movements intact, sclera anicteric, conjunctiva clear. Neck supple. LUNGS: Diffuse expiratory wheezing all lung abdalla. Good air entry bilaterally. Speaking in full sentences. CV: RRR, S1/S2, no MRG. Cap refill < 2 sec. ABDOMEN: Soft, non-distended, non-tender. EXTREMITIES: Normal range of motion. 1+ LE edema bilaterally, chronic per patient. NEUROLOGICAL: Normal speech, normal gait. CN II-XII grossly intact. PSYCH: Normal mood, normal affect. SKIN: Warm, dry, normal turgor, no rashes or lesions noted. 09/05/19 15:33 Past History - Past Medical History Allergies/Adverse Reactions: Allergies Allergy/AdvReac Type Severity Reaction Status Date / Time Penicillins Allergy Unknown Verified 09/05/19 15:24 SHRIMPS Allergy Uncoded 09/05/19 15:24 Home Medications: Ambulatory Orders Ramipril [Altace] 10 mg PO HS 07/01/12 NPH, Human Insulin Isophane [Novolin N] 30 unit SQ BID 11/13/12 metFORMIN HCL [Glucophage -] 1,000 mg PO BID 11/13/12 Clozapine 50 mg PO HS 12/12/14 Amlodipine Besylate [Norvasc -] 5 mg PO DAILY 01/10/16 Hydrochlorothiazide [Hctz -] 12.5 mg PO DAILY 01/10/16 Rosuvastatin Calcium [Crestor] 5 mg PO DAILY 01/10/16 Tamsulosin HCl [Flomax] 0.4 mg PO DAILY 01/10/16 Aspirin [Aspirin EC] 81 mg PO WEEKLY 07/26/19 Azithromycin [Zithromax 250mg Tablets -] 250 mg PO UTDICT #6 tab 07/26/19 Meclizine HCl 25 mg PO TID PRN 07/26/19 Albuterol 0.083% Nebulizer Miladis [Ventolin 0.083% Nebulizer Soln -] 1 neb NEB Q2H 09/05/19 COPD: Yes Diabetes: Yes HTN: Yes Hypercholesterolemia: Yes Psychiatric Problems: Yes (schizophrenia) - Immunization History Immunization Up to Date: No - Psycho Social/Smoking Cessation Hx Smoking Status: No Smoking History: Never smoked Have you smoked in the past 12 months: No Number of Cigarettes Smoked Daily: 0 If you are a former smoker, when did you quit?: 1989 Cigars Per Day: 0 Information on smoking cessation initiated: No 'Breaking Loose' booklet given: 02/08/17 Hx Alcohol Use: No Drug/Substance Use Hx: No Substance Use Type: None *Physical Exam - Vital Signs Last Vital Signs Temp Pulse Resp BP Pulse Ox 98.4 F 94 H 16 143/69 94 L 09/05/19 14:20 09/05/19 14:20 09/05/19 14:20 09/05/19 14:20 09/05/19 15:00 Heart Score/ECG Review - Age Age: 45-65 - ECG Intrepretation Comment:: 09/05/19 15:34 Normal sinus rhythm 78bpm, no ST or T wave changes ED Treatment Course - LABORATORY CBC & Chemistry Diagram: 09/05/19 15:05 09/05/19 15:05 Medical Decision Making - Medical Decision Making 09/05/19 15:24 A/P: 58-year-old male with acute on chronic respiratory symptoms. Differential includes COPD/asthma with exacerbation, pneumonia/URI. Cardiac etiology considered but less likely given chronic nature of symptoms and improvement with beta agonist at home. 1. EKG 2. Labs including CBC, CMP, troponin, BNP 3. Chest x-ray 4. DuoNeb, Solu-Medrol 125 mg IV push 5. Repeat SPO2/peak flow, lung exam Discharge - Discharge Information Condition: Stable - Follow up/Referral Referrals: Vadim Barajas MD [Staff Physician] - (Primary care/pulmonology) - Patient Discharge Instructions - Post Discharge Activity
[2019-09-05 15:21] LABS: BASO % 0.5 % (0-2.0); EOS % 15.3 % (0-4.5); HEMATOCRIT 43.4 % (35.4-49); HEMOGLOBIN 13.8 GM/dL (11.7-16.9); LYMPH % 21.8 % (8-40); MCH 25.8 pg (25.7-33.7); MCHC 31.8 g/dl (32.0-35.9); MEAN CELL VOLUME 81.1 fl (80-96); MEAN PLT VOLUME 8.1 fl (7.5-11.1); MONO % 6.4 % (3.8-10.2); PLATELET COUNT 161 K/MM3 (134-434); RBC 5.35 M/mm3 (4.00-5.60); WHITE BLOOD COUNT 7.7 K/mm3 (4.0-10.0)
[2019-09-05] MEDS ORDERED: methylPREDNISolone NA SUCC 125 MG/2 ML VIAL ONE (15:33)
[2019-09-05] MEDS ORDERED: PSEUDOEPHEDRINE HCL 60 MG TABLET ONE (15:33)
[2019-09-05 16:13] LABS: ALBUMIN 4.3 g/dl (3.4-5.0); ALK PHOS 81 U/L (45-117); ANION GAP 4 MMOL/L (8-16); BILIRUBIN,TOTAL 0.6 mg/dL (0.2-1); BLOOD UREA NITROGEN 9.5 mg/dL (7-18); CALCIUM 9.6 mg/dL (8.5-10.1); CHLORIDE 102 mmol/L (98-107); CO2 32 mmol/L (21-32); CREATININE 0.9 mg/dL (0.55-1.3); GLUCOSE,RANDOM 128 mg/dL (74-106); N-TERMINAL BNP 8.8 pg/ml (5-125); POTASSIUM 4.1 mmol/L (3.5-5.1); SGOT/AST 29 U/L (15-37); SGPT/ALT 55 U/L (13-61); SODIUM 138 mmol/L (136-145); TOT PROT 6.9 g/dl (6.4-8.2)
--- NOTE | 2019-09-05 16:35 | PDOC ---
*Physical Exam - Vital Signs Last Vital Signs Temp Pulse Resp BP Pulse Ox 98.4 F 94 H 16 143/69 94 L 09/05/19 14:20 09/05/19 14:20 09/05/19 14:20 09/05/19 14:20 09/05/19 15:00 - Physical Exam Comments: 09/05/19 16:31 Sign-out received from outgoing ER provider ROSARIO Hagen. Pt interviewed and examined. Ancillary studies reviewed. 09/05/19 17:14 Patient repeat peak flow at 400. 09/05/19 17:19 Patient reassessed, lungs now CTAB. Advised patient to take medication as prescribed and follow up with PCP/ pulmonology within the next week. Advised patient of signs and symptoms for return to ED. Patient verbalized understanding and agrees to plan. ED Treatment Course - LABORATORY CBC & Chemistry Diagram: 09/05/19 15:05 09/05/19 15:05 - ADDITIONAL ORDERS Additional order review: Laboratory Results 09/05/19 15:05 Sodium 138 Potassium 4.1 Chloride 102 Carbon Dioxide 32 Anion Gap 4 L BUN 9.5 Creatinine 0.9 Est GFR (CKD-EPI)AfAm 107.97 Est GFR (CKD-EPI)NonAf 93.16 Random Glucose 128 H Calcium 9.6 Total Bilirubin 0.6 AST 29 ALT 55 Alkaline Phosphatase 81 Troponin I < 0.02 B-Natriuretic Peptide 8.8 Total Protein 6.9 Albumin 4.3 09/05/19 15:05 RBC 5.35 MCV 81.1 MCHC 31.8 L RDW 16.0 H MPV 8.1 Neutrophils % 56.0 Lymphocytes % 21.8 Monocytes % 6.4 Eosinophils % 15.3 H Basophils % 0.5 - Medications Given in the ED: ED Medications Discontinued Medications Generic Name Dose Route Start Last Admin Trade Name Freq PRN Reason Stop Dose Admin Albuterol/Ipratropium 1 amp 09/05/19 15:10 09/05/19 15:40 Duoneb - NEB 09/05/19 15:11 1 amp ONCE ONE Administration Methylprednisolone Sodium Succinate 125 mg 09/05/19 15:15 09/05/19 15:40 Solu-Medrol - IVPB 09/05/19 15:16 125 mg ONCE ONE Administration Pseudoephedrine HCl 60 mg 09/05/19 15:11 09/05/19 15:40 Sudafed - PO 09/05/19 15:12 60 mg ONCE ONE Administration Discharge - Discharge Information Problems reviewed: Yes Clinical Impression/Diagnosis: Shortness of breath Condition: Stable Disposition: HOME - Admission No - Additional Discharge Information Prescriptions: predniSONE [Deltasone -] 40 mg PO DAILY #14 tablet - Follow up/Referral Referrals: Vadim Barajas MD [Staff Physician] - (Primary care/pulmonology) Bucky Diaz MD, MD [Staff Physician] - Harshad Narayan MD [Staff Physician] - - Patient Discharge Instructions Patient Printed Discharge Instructions: DI for Shortness of Breath Additional Instructions: Please take medications as prescribed. Please follow up with a primary care physician and/or collision repairer for chronic management of your shortness of breath. If you develop worsening shortness of breath, chest pain, worsening swelling to your legs, or any new or worsening symptoms, please return to the ER immediately. - Post Discharge Activity
--- NOTE | 2019-09-06 13:50 | EKG ---
Test Reason : Blood Pressure : / mmHG Vent. Rate : 076 BPM Atrial Rate : 076 BPM P-R Int : 162 ms QRS Dur : 084 ms QT Int : 352 ms P-R-T Axes : 069 076 060 degrees QTc Int : 396 ms NORMAL SINUS RHYTHM WHEN COMPARED WITH ECG OF 26-JUL-2019 15:09, NO SIGNIFICANT CHANGE WAS FOUND Confirmed by ALEX LOVELACE MD ([id number]) on 09/06/2019 1:49:47 PM Referred By: Confirmed By:ALEX LOVELACE MD
== END 2019-09-05 17:45 | disposition home or self-care (01) ==
LOC: JER 14:15
PROC: 3E0F7GC Introduction of Other Therapeutic Substance into Respiratory Tract, Via Natural or Artificial Opening (ICD-10-PCS; principal; 2019-09-05)
PROC: 3E0333Z Introduction of Anti-inflammatory into Peripheral Vein, Percutaneous Approach (ICD-10-PCS; 2019-09-05)
DX: J44.9 Chronic obstructive pulmonary disease, unspecified (principal); R06.02 Shortness of breath; I10 Essential (primary) hypertension; E78.00 Pure hypercholesterolemia, unspecified; E11.9 Type 2 diabetes mellitus without complications; Z79.4 Long term (current) use of insulin; Z91.013 Allergy to seafood; Z88.0 Allergy status to penicillin
CPT/HCPCS: 36415; 71046-TC-FY; 80053; 83880; 84484; 85025; 93005; 93010; 99283-25

== ENCOUNTER 2019-10-28 03:31 | Emergency (ER) | payer OTHER ==
--- NOTE | 2019-10-28 03:51 | PDOC ---
History of Present Illness - General Chief Complaint: Cold Symptoms Stated Complaint: DIFF BREATHING Time Seen by Provider: 10/28/19 03:49 - History of Present Illness Initial Comments: 10/28/19 04:26 58 yo M PMH schizophrenia on clozapine, COPD, IDDM, presenting with SOB. States that he has been using his albuterol inhalers with greater frequency over the past month, now requiring every hour. Reports that steroids are the only medications that help him, but they always significantly elevate his sugars. Patient with history of seeing multiple PCPs and pulmonologists with splitting, not on any maintenance medications and not actively seeing anyone. Is convinced that he has not being formally diagnosed with anything and the doctors "just can 't figure it out", and further reports that the various inhalers he has been prescribed do not work. Denies CP, fevers/chills, sick contacts, recent travel, [place], N/V, abd pain, constipation/diarrhea. Past History - Past Medical History Allergies/Adverse Reactions: Allergies Allergy/AdvReac Type Severity Reaction Status Date / Time Penicillins Allergy Unknown Verified 10/28/19 03:53 SHRIMPS Allergy Uncoded 10/28/19 03:53 Home Medications: Ambulatory Orders Ramipril [Altace] 10 mg PO HS 07/01/12 NPH, Human Insulin Isophane [Novolin N] 30 unit SQ BID 11/13/12 metFORMIN HCL [Glucophage -] 1,000 mg PO BID 11/13/12 Clozapine 50 mg PO HS 12/12/14 Amlodipine Besylate [Norvasc -] 5 mg PO DAILY 01/10/16 Hydrochlorothiazide [Hctz -] 12.5 mg PO DAILY 01/10/16 Rosuvastatin Calcium [Crestor] 5 mg PO DAILY 01/10/16 Tamsulosin HCl [Flomax] 0.4 mg PO DAILY 01/10/16 Aspirin [Aspirin EC] 81 mg PO WEEKLY 07/26/19 Azithromycin [Zithromax 250mg Tablets -] 250 mg PO UTDICT #6 tab 07/26/19 Meclizine HCl 25 mg PO TID PRN 07/26/19 Albuterol 0.083% Nebulizer Miladis [Ventolin 0.083% Nebulizer Soln -] 1 neb NEB Q2H 09/05/19 predniSONE [Deltasone -] 40 mg PO DAILY #14 tablet 09/05/19 Fluticasone Propionate [Flovent Hfa] 110 mcg IH BID #1 inh 10/28/19 predniSONE [Deltasone -] 40 mg PO DAILY #3 tablet 10/28/19 COPD: Yes Diabetes: Yes HTN: Yes Hypercholesterolemia: Yes Psychiatric Problems: Yes (schizophrenia) - Immunization History Immunization Up to Date: No - Psycho Social/Smoking Cessation Hx Smoking Status: No Smoking History: Never smoked Have you smoked in the past 12 months: No Number of Cigarettes Smoked Daily: 0 If you are a former smoker, when did you quit?: 1990 Cigars Per Day: 0 'Breaking Loose' booklet given: 02/08/17 Hx Alcohol Use: No Drug/Substance Use Hx: No Substance Use Type: None Review of Systems - Review of Systems Comments:: 10/28/19 04:31 GENERAL/CONSTITUTIONAL: No fever or chills. No weakness. HEAD, EYES, EARS, NOSE AND THROAT: No change in vision. No ear pain or discharge. No sore throat. CARDIOVASCULAR: No chest pain. Endorses shortness of breath. RESPIRATORY: No cough, wheezing, or hemoptysis. GASTROINTESTINAL: No nausea, vomiting, diarrhea or constipation. GENITOURINARY: No dysuria, frequency, or change in urination. MUSCULOSKELETAL: No joint or muscle swelling or pain. No neck or back pain. SKIN: No rash NEUROLOGIC: No headache, vertigo, loss of consciousness, or change in strength/ sensation. ENDOCRINE: No increased thirst. No abnormal weight change. HEMATOLOGIC/LYMPHATIC: No anemia, easy bleeding, or history of blood clots. ALLERGIC/IMMUNOLOGIC: No hives or skin allergy *Physical Exam - Physical Exam 10/28/19 04:59 Gen: well-developed, well-nourished, NAD Neuro: AAOX4, CN II-XII intact, FTN intact, EOMI, PERRLA, 5/5 strength, SILT HEENT: atraumatic, normocephalic Neck: trachea midline, supple CV: tachycardic in 110s, regular rhythm, no murmurs, rubs, or gallops Pulm: mild expiratory wheezing Abd: soft, non-distended, non-tender MSK: full ROM, intact pulses Extr: no edema, no deformities Skin: warm, dry Medical Decision Making - Medical Decision Making 10/28/19 04:30 Concern for COPD exacerbation. - finger stick - Duonebs X3 - reassess - possible steroids - likely dc for further outpatient workup Discharge - Discharge Information Problems reviewed: Yes Clinical Impression/Diagnosis: COPD (chronic obstructive pulmonary disease) Condition: Improved Disposition: HOME - Admission No - Additional Discharge Information Prescriptions: Fluticasone Propionate [Flovent Hfa] 110 mcg IH BID #1 inh predniSONE [Deltasone -] 40 mg PO DAILY #3 tablet - Follow up/Referral Referrals: Neyda Michel [Primary Care Provider] - [facility] [place] [facility] [Provider Group] - Patient Discharge Instructions Additional Instructions: You were seen with shortness of breath. This improved with medications. It is very important that you follow up with a primary care doctor. We have included the number for one to contact. We have also send a steroid course to your pharmacy. Take your prednisone once a day for the next 3 days. Return to the ED if you develop worsening symptoms. - Post Discharge Activity
[2019-10-28 04:01] VITALS: BP 163/75; TEMP 97.7; BMI 34.0
[2019-10-28] MEDS ORDERED: ALBUTEROL SO4 2.5/IPRATROPIUM 0.5 INH SOL 3 ML VIAL.NEB. NEB ONE ×2 (04:06→04:13)
--- NOTE | 2019-10-28 04:20 | PDOC ---
Attending Attestation - Resident Resident Name: Devante Terry - ED Attending Attestation I have performed the following: I have examined & evaluated the patient, The case was reviewed & discussed with the resident, I agree w/resident's findings & plan, Exceptions are as noted - HPI HPI: 10/28/19 06:30 58 yo M PMH schizophrenia on clozapine, COPD, IDDM, presenting with SOB. - Physicial Exam PE: 10/28/19 06:30 Vitals: Triage Vital signs reviewed General Appearance: No acute distress, well nourished well developed, Head: Atraumatic, Cardiac: Regular rate and rhythym, no murmurs, no rubs, no gallops, Lungs: Mild end expiratory wheeze bilaterally Abdomen: Soft, non distended, normal bowel sounds, non tender to palpation Extremities: Full range of motion to all extremities, no cyanosis, clubbing, or edema Psych: Normal mood, normal affect - Medical Decision Making 10/28/19 06:31 Mild asthma exacerbation no chest pain improving with nebs patient states he usually requires a short course of steroids We will treat with 3-day course of steroids Patient prescribed steroid inhaler as well as stressed the importance of PCP follow-up Patient feels much better Findings, need for follow-up and strict return instructions discussed with patient.
[2019-10-28] MEDS ORDERED: predniSONE 20 MG TABLET (UD) PO ONE (04:58)
[2019-10-28] MEDS ORDERED: predniSONE 20 MG TABLET (UD) ONE (04:58)
[2019-10-28 05:04] VITALS: PULSE 104
== END 2019-10-28 05:08 | disposition home or self-care (01) ==
LOC: JER 03:31
PROC: 3E0F7GC Introduction of Other Therapeutic Substance into Respiratory Tract, Via Natural or Artificial Opening (ICD-10-PCS; principal; 2019-10-28)
DX: J44.9 Chronic obstructive pulmonary disease, unspecified (principal); I10 Essential (primary) hypertension; E78.00 Pure hypercholesterolemia, unspecified; E11.9 Type 2 diabetes mellitus without complications; F20.9 Schizophrenia, unspecified; Z88.0 Allergy status to penicillin; Z91.013 Allergy to seafood
CPT/HCPCS: 82962; 94640; 99282-25

== ENCOUNTER 2020-12-13 22:31 | Emergency (ER) | payer OTHER ==
[2020-12-13 22:45] VITALS: BMI 33.6
[2020-12-13] MEDS ORDERED: ACETAMINOPHEN 325 MG TABLET (FP) PO ONE (23:29)
[2020-12-13] MEDS ORDERED: ACETAMINOPHEN 325 MG TABLET (FP) ONE (23:32)
[2020-12-13 23:49] LABS: BASO % 0.8 % (0-2.0); EOS % 0.1 % (0-4.5); HEMATOCRIT 37.5 % (35.4-49); HEMOGLOBIN 12.5 GM/dL (11.7-16.9); LYMPH % 12.4 % (8-40); MCH 25.8 pg (25.7-33.7); MCHC 33.2 g/dl (32.0-35.9); MEAN CELL VOLUME 77.6 fl (80-96); MEAN PLT VOLUME 8.1 fl (7.5-11.1); MONO % 6.3 % (3.8-10.2); NEUT % 80.4 % (42.8-82.8); PLATELET COUNT 135 K/MM3 (134-434); RBC 4.84 M/mm3 (4.00-5.60); RDW 16.5 % (11.9-15.9)
[2020-12-14 00:08] LABS: CHLORIDE 99 mmol/L (98-107); POTASSIUM 4.2 mmol/L (3.5-5.1); SODIUM 137 mmol/L (136-145)
[2020-12-14 00:10] LABS: CALCIUM 8.5 mg/dL (8.5-10.1)
[2020-12-14 00:12] LABS: ALBUMIN 3.8 g/dl (3.4-5.0); ANION GAP 9 MMOL/L (8-16); BLOOD UREA NITROGEN 13.7 mg/dL (7-18); CO2 28 mmol/L (21-32); GLUCOSE,RANDOM 196 mg/dL (74-106)
[2020-12-14 00:14] LABS: CREATININE 1.3 mg/dL (0.55-1.3); SGOT/AST 27 U/L (15-37); SGPT/ALT 34 U/L (13-61)
[2020-12-14 00:15] LABS: BILIRUBIN,TOTAL 0.9 mg/dL (0.2-1); TOT PROT 7.1 g/dl (6.4-8.2)
[2020-12-14 00:17] LABS: ALK PHOS 74 U/L (45-117)
[2020-12-14] MEDS ORDERED: SODIUM CHLORIDE 0.9% 500 ML INFUS.BAG IV ONE (00:51)
[2020-12-14] MEDS ORDERED: AZITHROMYCIN 250 MG TABLET PO ONE (01:42)
[2020-12-14] MEDS ORDERED: AZITHROMYCIN 250 MG TABLET ONE (01:47)
[2020-12-14 02:19] VITALS: TEMP 98.9
[2020-12-14 03:05] VITALS: BP 101/71; PULSE 86
== END 2020-12-14 03:05 | disposition home or self-care (01) ==
LOC: JER 22:31
DX: J18.9 Pneumonia, unspecified organism (principal)
CPT/HCPCS: 36415; 71046-TC-FY; 80053; 82550; 82553; 82962; 84484; 85025; 93005; 93010; 99285-25